=== PATIENT | female | born 2005 | race Caucasian/White ===

== ENCOUNTER 2024-09-08 15:52 | Emergency (ER) | payer BC, SELFPAY ==
[2024-09-08] VITALS (8 sets, daily range): BP systolic 109–138; BP diastolic 88–93; PULSE 82–116; RESP 16; TEMP 36.6; O2SAT 98–100; BMI 30.2
--- NOTE | 2024-09-08 16:08 | ED.GENADULT ---
HPI - General Adult General Chief complaint: Chest Pain Stated complaint: Back, rib, shoulder pain Time Seen by Provider: 09/08/24 16:04 History of Present Illness HPI narrative: Pt reports 3-4 days ago, pain in Left shoulder, back, and ribs. Has been nauseous and lightheaded as well. 18-year-old young woman presenting to the emergency department with concern of left flank back area pain. This is been going on for the last few days. She does not recall any preceding trauma. Seems to be gone in the left flank and then up into the upper left back and then across to the right flank. She thought maybe there was a urinary tract infection but inquired on the triage line about the symptoms and was recommended to be evaluated and her mother wanted her to be seen. She has noted her heart rate to be intermittently tachycardic and seems to do this under light exertional strain as well. Up into the 140s even. Seems to fluctuate quickly. This is just because reports to her watch. She is not feeling short of breath. The discomfort as mentioned can be exacerbated by movement, truncal rotation apparently. No dysuria or frequency or urgency. Some nausea and lightheadedness has been experienced as well. Not necessarily associated with tachycardia as reported. Related Data Home Medications ?Medication ?Instructions ?Recorded ?Confirmed No Known Home Medications 09/08/24 09/08/24 Allergies Allergy/AdvReac Type Severity Reaction Status Date / Time amoxicillin Allergy Unknown Verified 09/08/24 15:58 Review of Systems Status of ROS: Reports: 6 or more systems reviewed and unremarkable except as noted in History and below [facility] Social History Smoking Status: Never smoker How often do you have a drink containing alcohol: never How often do you have six or more drinks on one occasion: Never AUDIT-C Alcohol total score: 0 Non-prescribed substance use: denies use Exam Narrative: Exam Narrative: Pleasant. NAD. Skin is warm dry. She is sore to percussion in the left flank and then in the left upper back/periscapular musculature. Lungs are clear. Heart with regular rate and rhythm without murmur rub or gallop. Abdomen is soft and does have a little discomfort to palpation bilateral anterior rib margins left perhaps more than right. Skin is warm dry without evidence of trauma. Extremities are well perfused without edema. Const: Vital Signs, click to edit/add: Vital Signs - 24 hr 09/08/24 15:55 09/08/24 16:18 09/08/24 16:19 Temperature 97.8 F Pulse Rate 87 83 Pulse Rate [Pulse Oximeter] 116 H Respiratory Rate 16 Blood Pressure 109/93 H Blood Pressure [Ri ght Upper Arm] 130/88 Pulse Oximetry 99 98 100 Oxygen Delivery Me thod Room Air 09/08/24 16:20 09/08/24 16:30 09/08/24 16:32 Temperature Pulse Rate 82 90 Pulse Rate [Pulse Oximeter] Respiratory Rate Blood Pressure Blood Pressure [Ri ght Upper Arm] Pulse Oximetry 99 99 98 Oxygen Delivery Me thod 09/08/24 16:34 09/08/24 16:35 Temperature Pulse Rate 94 102 H Pulse Rate [Pulse Oximeter] Respiratory Rate Blood Pressure 138/91 H Blood Pressure [Ri ght Upper Arm] Pulse Oximetry 99 100 Oxygen Delivery Me thod Documenting provider has reviewed patient's vital signs: yes Course Vital Signs Vital signs: Initial Vital Signs Temperature 97.8 F 09/08/24 15:55 Temperature Source Temporal Artery Scan 09/08/24 15:55 Pulse Rate 116 H 09/08/24 15:55 Respiratory Rate 16 09/08/24 15:55 Blood Pressure 130/88 09/08/24 15:55 Blood Pressure Mean 102 09/08/24 15:55 Blood Pressure Position Sitting 09/08/24 15:55 Pulse Oximetry 99 09/08/24 15:55 Oxygen Delivery Method Room Air 09/08/24 15:55 Vital Signs Temperature 97.8 F 09/08/24 15:55 Pulse Rate 116 H 09/08/24 15:55 Respiratory Rate 16 09/08/24 15:55 Blood Pressure 130/88 09/08/24 15:55 Pulse Oximetry 99 09/08/24 15:55 Oxygen Delivery Method Room Air 09/08/24 15:55 Temperature 97.8 F 09/08/24 15:55 Pulse Rate 102 H 09/08/24 16:35 Respiratory Rate 16 09/08/24 15:55 Blood Pressure 138/91 H 09/08/24 16:34 Pulse Oximetry 100 09/08/24 16:35 Oxygen Delivery Method Room Air 09/08/24 15:55 Medications Administered Medications: Discontinued Medications Generic Name Dose Route Start Last Admin Trade Name Smiley PRN Reason Stop Dose Admin Acetaminophen 1,000 mg 09/08/24 17:20 09/08/24 17:26 Acetaminophen 500 Mg Tablet PO 09/08/24 17:21 1,000 mg ONCE ONE Administration Medical Decision Making MDM Narrative Medical decision making narrative: Might have some costochondritis. Had urinary tract infections as a kid she says this does not appear to be urinary tract infection other than the initial location of her discomfort. Would however check for this and . This point seems to have musculoskeletal pain of unclear etiology. No trauma to suggest splenic injury. Check hemoglobin. Perhaps this can explain some tachycardia or evidence of need for further workup looking for bleed source. Monitor on recreation programmer. No events on monitor. Blood pressure improved. Otherwise well. Labs reassuring. Chest x-ray reviewed by me looks normal normal cardiac silhouette, and no infiltrate no pneumothorax no apparent bony trauma. Did give acetaminophen with concern of a headache. See patient discharge plan for further discussion Lab Data Lab results reviewed: Yes I reviewed the patient's lab results Labs: Lab Results 09/08/24 09/08/24 Range/Units 16:42 16:52 WBC 7.64 (4.50-11.00) K/uL RBC 4.49 (4.00-5.20) m/uL Hgb 14.0 (12.0-16.0) gm/dL Hct 42.2 (33.0-51.0) % MCV 94 (80-100) fL MCH 31 (26-34) pg MCHC 33 (32-36) gm/dL RDW Coeff of Mele 12.2 (11.5-15.5) % Plt Count 203 (140-440) K/uL Neut % (Auto) 65.0 (42.0-72.0) % Lymph % (Auto) 24.9 (20-44) % Bollinger % (Auto) 8.8 (0.0-11.0) % Eos % (Auto) 0.9 (0.0-7.0) % Baso % (Auto) 0.3 (0.0-3.0) % Neut # (Auto) 4.97 (1.7-7.0) K/uL Lymph # (Auto) 1.90 (0.90-2.90) K/uL Bollinger # (Auto) 0.70 (0.00-0.90) K/UL Eos # (Auto) 0.07 (0.00-0.50) K/uL Baso # (Auto) 0.02 (0.00-0.30) K/uL Abs Immat Gran (auto) 0.01 (0.00-0.30) K/uL Imm/Tot Granulo (auto) 0.1 % Sodium 136 (135-149) mmol/L Potassium 4.0 (3.6-5.1) mmol/L Chloride 102 (96-114) mmol/L Carbon Dioxide 24 (20-32) mmol/L Anion Gap 10 (7-15) mEq/L BUN 9 (5-24) mg/dL Creatinine 0.6 (0.6-1.2) mg/dL Estimated Creat Clear 119.28 Estimated GFR 133 ml/min Glucose 92 (60-115) mg/dL Calcium 9.8 (8.7-10.8) mg/dL Urine Color Yellow (Yellow) Urine Appearance Cloudy A (Clear) Urine pH 6.0 (5.0-8.5) Ur Specific Ajo 1.015 (1.000-1.030) Urine Protein Negative (Negative) Urine Glucose (UA) Negative (Negative) Urine Ketones Negative (Negative) Urine Blood 2+ A (Negative) Urine Nitrite Negative (Negative) Urine Bilirubin Negative (Negative) Urine Urobilinogen 0.2 (0.2-1.0) Ur Leukocyte Esterase Negative (Negative) Urine RBC 0-2 (0-2) Urine WBC 2-5 (0-5) Ur Squamous Epith Cells Few (None-Few) Urine Bacteria None (None) Urine HCG, Qual Negative (Negative) ECG Data Attestation: I personally reviewed and interpreted this ECG as follows: (Normal sinus rhythm rate of 78) Discharge Plan Discharge Clinical Impression: Musculoskeletal back pain, Chest wall pain Additional Instructions: As I said, your labs are reassuring. Chest x-ray looks normal. See handout on stretches of the upper back that I would consider doing daily. Over the next 4 days consider taking 400 mg of ibuprofen 3 times daily, maybe with a few bites of food. Alternative to the ibuprofen could be 375 mg of naproxen 2 times daily. Be seen for increasing and persistent chest pain, shortness of breath. Prescriptions: No Action No Known Home Medications Follow Up/Referrals: Alix Marie PA-C [Primary Care Provider] - Stand Alone Forms: [employer] Info Instructions
--- NOTE | 2024-09-08 16:37 | CRLHL7_ITS ---
For Patients: As a result of the Century Cures Act, medical imaging exams and procedure reports are released immediately into your electronic medical record. You may view this report before your referring provider. If you have questions, please contact your health care provider. Indication: Left back chest pain Comparison: None available. Technique: Single AP view chest Findings: There is no focal consolidation, effusion, or pneumothorax. The cardiomediastinal silhouette is within normal limits. The bony thorax is grossly intact. Impression: No acute cardiopulmonary abnormality. Dictated by Zelalem Chiu MD @ 09/08/2024 5:45:55 PM (Electronically Signed)
[2024-09-08 16:50] LABS: Appearance Urine Cloudy (Clear); Bilirubin Urine Negative (Negative); Blood Urine 2+ (Negative); Color Urine Yellow (Yellow); Glucose Urine Negative (Negative); Ketones Urine Negative (Negative); Leukocyte Esterase Urine Negative (Negative); Nitrite Urine Negative (Negative); Protein Urine Negative (Negative); Specific Gravity Urine 1.015 (1.000-1.030); Urobilinogen Urine 0.2 (0.2-1.0)
[2024-09-08 16:57] LABS: Basophils Absolute Auto 0.02 K/uL (0.00-0.30); Basophils Percent Auto 0.3 % (0.0-3.0); Eosinophils Absolute Auto 0.07 K/uL (0.00-0.50); Eosinophils Percent Auto 0.9 % (0.0-7.0); Hematocrit 42.2 % (33.0-51.0); Immature Granulocytes Abs Auto 0.01 K/uL (0.00-0.30); Immature Granulocytes Pct Auto 0.1 %; Lymphocytes Percent Auto 24.9 % (20-44); Mean Corpuscular HGB Conc 33 gm/dL (32-36); Mean Corpuscular Hemoglobin 31 pg (26-34); Mean Corpuscular Volume 94 fL (80-100); Monocytes Percent Auto 8.8 % (0.0-11.0); Neutrophils Absolute Auto 4.97 K/uL (1.7-7.0); Platelet Count* 203 K/uL (140-440); RDW Coefficient of Variation % 12.2 % (11.5-15.5); Red Blood Count 4.49 m/uL (4.00-5.20); Slide Review Reflex No; White Blood Count* 7.64 K/uL (4.50-11.00)
[2024-09-08 17:05] LABS: RBC Urine 0-2 (0-2); Squamous Epithelial Cell Urine Few (None-Few)
[2024-09-08 17:11] LABS: Chloride* 102 mmol/L (96-114); Sodium* 136 mmol/L (135-149)
[2024-09-08 17:14] LABS: Creatinine* 0.6 mg/dL (0.6-1.2); Est. Creatinine Clearance* 119.28; Estimated Glomerular Filt Rate 133 ml/min
[2024-09-08 17:15] LABS: Anion Gap 10 mEq/L (7-15); Blood Urea Nitrogen* 9 mg/dL (5-24); Calcium* 9.8 mg/dL (8.7-10.8); Carbon Dioxide* 24 mmol/L (20-32); Glucose* 92 mg/dL (60-115)
[2024-09-08] MEDS: ACETAMINOPHEN 500 MG TABLET 1000 MG PO (17:26)
[2024-09-08 17:29] LABS: Ur HCG Qualitative* Negative (Negative)
== END 2024-09-08 17:50 | disposition home or self-care (01) ==
PROVIDERS: Emergency Provider Family Medicine; PCP Physician Assistant
DX: R07.9 Chest pain, unspecified (principal); M54.9 Dorsalgia, unspecified
CPT/HCPCS: 36415; 71045; 80048; 81001; 81025; 85025; 99284; A9270